=== PATIENT | female | born 1995 | race Caucasian/White ===

== ENCOUNTER 2019-01-16 14:01 | Emergency (ER) | payer OTHER ==
[~2019-01-16] VITALS: Ht 160 cm; Wt 73.0 kg
[2019-01-16] MEDS ORDERED: PRENATABS RX T1 EACH (14:36)
== END 2019-01-16 18:07 | disposition home or self-care (01) ==
LOC: ER 14:01
DX: R11.10 Vomiting, unspecified (principal); R10.13 Epigastric pain; R51 Headache

== ENCOUNTER 2019-01-22 11:30 | Emergency (ER) | payer OTHER ==
[~2019-01-22] VITALS: Ht 160 cm; Wt 68.0 kg
[~2019-01-22 11:30] MED LIST: PRENATABS RX T1 EACH
== END 2019-01-22 20:19 | disposition home or self-care (01) ==
LOC: ER 11:30
DX: O26.892 Other specified pregnancy related conditions, second trimester (principal); E86.0 Dehydration

== ENCOUNTER → 2019-03-27 | Outpatient (CLI) | payer OTHER | END | disposition home or self-care (01) | LOC: PRENATAL 14:30 | DX: O35.3XX0 Maternal care for (suspected) damage to fetus from viral disease in mother, not applicable or unspecified (principal); O28.3 Abnormal ultrasonic finding on antenatal screening of mother; O35.0XX0 Maternal care for (suspected) central nervous system malformation in fetus, not applicable or unspecified ==

== ENCOUNTER 2019-04-10 23:02 | Outpatient (CLI) | payer OTHER ==
[2019-04-11] MEDS ORDERED: DUI500 PO (19:30)
[2019-04-11] MEDS ORDERED: FUSION PLUS CA1 EACH PO (19:30)
[2019-04-11] MEDS ORDERED: ZITHROMAX200 MG PO (19:31)
== END 2019-04-11 20:37 | disposition home or self-care (01) ==
LOC: OBS/DEL 23:02
DX: O99.512 Diseases of the respiratory system complicating pregnancy, second trimester (principal); B96.0 Mycoplasma pneumoniae [M. pneumoniae] as the cause of diseases classified elsewhere; O23.32 Infections of other parts of urinary tract in pregnancy, second trimester; O99.012 Anemia complicating pregnancy, second trimester; D64.89 Other specified anemias

== ENCOUNTER 2019-04-12 21:41 | Outpatient (CLI) | payer OTHER ==
[~2019-04-12 21:41] MED LIST changes: +DUI500 PO; +FUSION PLUS CA1 EACH PO; +ZITHROMAX200 MG PO
== END 2019-04-13 14:21 | disposition home or self-care (01) ==
LOC: OBS/DEL 21:41
DX: O13.2 Gestational [pregnancy-induced] hypertension without significant proteinuria, second trimester (principal); O23.32 Infections of other parts of urinary tract in pregnancy, second trimester; O99.012 Anemia complicating pregnancy, second trimester; D64.89 Other specified anemias; O99.512 Diseases of the respiratory system complicating pregnancy, second trimester; B96.0 Mycoplasma pneumoniae [M. pneumoniae] as the cause of diseases classified elsewhere

== ENCOUNTER 2019-04-15 17:11 | Inpatient (IN) | payer OTHER ==
[~2019-04-15] VITALS: Ht 160 cm; Wt 0.5 kg
[2019-04-16] MEDS ORDERED: CHILDREN'S ASPI81 MG PO (11:58)
== END 2019-04-23 16:03 | disposition home or self-care (01) | DRG 786 ==
LOC: OBS/DEL 17:11 → LDR 04-16 10:07 → OB/GYN 04-19 16:24 → LDR 04-19 18:03 → OB/GYN 04-21 16:45
PROVIDERS: ADMIT Obstetrics & Gynecology
PROC: 4A1HXCZ Monitoring of Products of Conception, Cardiac Rate, External Approach (ICD-10-PCS; 2019-04-16)
PROC: BY4CZZZ Ultrasonography of Second Trimester, Single Fetus (ICD-10-PCS; 2019-04-16)
PROC: 4A033R1 Measurement of Arterial Saturation, Peripheral, Percutaneous Approach (ICD-10-PCS; 2019-04-19)
PROC: 10D00Z1 Extraction of Products of Conception, Low, Open Approach (ICD-10-PCS; principal; 2019-04-19 13:15)
DX: O14.12 Severe pre-eclampsia, second trimester (principal); O60.12X0 Preterm labor second trimester with preterm delivery second trimester, not applicable or unspecified; O98.912 Unspecified maternal infectious and parasitic disease complicating pregnancy, second trimester; O13.2 Gestational [pregnancy-induced] hypertension without significant proteinuria, second trimester; O26.842 Uterine size-date discrepancy, second trimester; Z3A.26 26 weeks gestation of pregnancy; Z37.0 Single live birth

== ENCOUNTER → 2023-11-27 | Emergency (ER) | payer OTHER ==
[~2023-11-27] VITALS: Ht 160 cm; Wt 66.7 kg
[~2023-11-27] MED LIST changes: +CHILDREN'S ASPI81 MG PO
== END | disposition home or self-care (01) ==
LOC: ER 08:04
DX: Z53.21 Procedure and treatment not carried out due to patient leaving prior to being seen by health care provider (principal)